=== PATIENT | male | born 1955 | race Caucasian/White ===

== ENCOUNTER 2023-11-11 00:49 | Emergency (ER) | payer OTHER ==
[2023-11-11] MEDS ORDERED: TDAP (DIPHTH,PERTUSS(ACELL),TET VAC) 0.5 ML VIAL IMVAC ONE (01:00)
[2023-11-11] MEDS ORDERED: KETOROLAC 30 MG/ML INJ ONE (01:00)
[2023-11-11] MEDS ORDERED: NICOTINE 21 MG/PAT TD ONE (01:24)
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
[2023-11-11] MEDS ORDERED: ACETAMINOPHEN 500 MG TAB ONE ×2 (03:52)
[2023-11-11] MEDS ORDERED: methocarbamoL 500 MG TAB ONE (03:52)
[2023-11-11 04:32] VITALS: TEMP 98; O2SAT 99
[2023-11-11 04:33] VITALS: BP 121/77
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
== END 2023-11-11 04:26 | disposition home or self-care (01) ==
LOC: ER 00:49
DX: S09.90XA Unspecified injury of head, initial encounter (principal); S00.411A Abrasion of right ear, initial encounter; R04.0 Epistaxis; F17.210 Nicotine dependence, cigarettes, uncomplicated
CPT/HCPCS: 70450; 71045; 72125; 96372; 99284